=== PATIENT | male | born 1960 | race Caucasian/White ===

== ENCOUNTER 2019-05-08 16:56 | Emergency (ER) | payer OTHER, SELFPAY ==
[2019-05-08] VITALS (30 sets, daily range): BP systolic 79–154; BP diastolic 33–96; PULSE 60–89; RESP 13–44; TEMP 36.5; O2SAT 90–100
[2019-05-08 17:26] LABS: Prothrombin Time 10.3 sec (9.3-11.0)
[2019-05-08] MEDS: Ketamine 500 MG/10 ML VIAL 200 MG IV (17:26)
[2019-05-08] MEDS: Succinylcholine 200 MG/10 ML VIAL 100 MG IVP (17:30)
[2019-05-08 17:31] LABS: Abs Immature Grans 0.83 k/cumm (0.0-0.09); HCT 44.2 % (40.0-50.0); HGB 14.8 g/dL (13.5-17.5); Mean Corp. HGB Concentration 33.5 g/dL (32.0-36.0); Mean Corpuscular Hemoglobin 28.5 pg (27.0-33.0); Mean Platelet Volume 9.4 fL (8.0-11.0); Platelet Count 303 x1000/uL (130-400); RBC Distribution Width 13.6 % (11.8-14.1); White Blood Cell Count 14.18 k/cumm (4.4-10.8)
[2019-05-08] MEDS: PROPOFOL 500 MG/50 ML BTL 8.268 MG IVPB (17:35)
[2019-05-08 17:37] LABS: ALT 122 U/L (16-63); AST 156 U/L (15-37); Albumin 3.3 g/dL (3.4-5.0); Alkaline Phosphatase 65 U/L (46-116); Anion Gap 20.4 mmol/L (3-11); BUN 16 mg/dL (7-18); Bilirubin, Total 0.5 mg/dL (0.2-1.0); CO2 18.6 mmol/L (21.0-32.0); CREATININE 1.34 mg/dL (0.70-1.30); Calcium 8.6 mg/dL (8.5-10.1); Chloride 101 mmol/L (98-107); Estimated GFR 54.56 (mL/min/1.73m2); Glucose 319 mg/dL (74-106); NT-proBNP 3583 pg/mL (<300); Sodium 140 mmol/L (136-145); Total Protein 7.2 g/dL (6.4-8.2)
[2019-05-08 17:44] LABS: Troponin I 0.36 ng/Ml (<0.06)
--- NOTE | 2019-05-08 17:51 | W.ED.GENAD ---
Discharge Plan Disposition Patient Disposition: [facility] Discharge Details Chief Complaint: CodeBlue Clinical Impression: Cardiac arrest Primary Care Provider: [facility],[place] ED Provider: Omar Tello Home Meds and New Rx's Prescriptions: No Action aspirin [Aspir-81] 81 MG tablet,delayed release (DR/EC) 1 tab PO DIRECTED RF: 0 CENTRUM TABLET 1 EACH tablet 1 tab PO DAILY RF: 0 atenolol 50 MG tablet 1 tab PO DAILY Qty: 90 RF: 4 metformin 500 MG tablet 1,000 mg PO BID@0800,1700 RF: 0 Discharge Data Discharge Date/Time-TO BE ENTERED AT DEPARTURE: 05/08/19 19:55 Medical Decision Making 59-year-old male with history of diabetes, obese, here after becoming unresponsive while watching television. Downtime of up to 7 minutes prior to defibrillation and CPR. Patient now with return of spontaneous circulation. Spontaneously breathing on his own. Screening ECG was reviewed and interpreted by me: ST depressions are noted lead I, 2, V3 to V6, [address] elevation in aVR. Concern for posterior STEMI versus inferior lateral ischemia. Labs reviewed and troponin is elevated. Patient was administered ketamine. Supraglottic airway was removed,there was vomit noted in posterior oropharynx and around the cords, vocal cords were visualized, airway was suctioned, succinylcholine was administered and endotracheal tube 7-0 was placed on first attempt with video laryngoscopy. Plan for CT head to assess for hemorrhage. We will also scan CT chest and abdomen pelvis to assess for acute pulmonary embolism or other acute pathology to explain to arrest. 18:00 --I spoke with inspector final assembly electrical at [facility] who will accept the patient for Dr. Manuel. WCardiology recommends giving heparin bolus and drip as well as Plavix, statin and aspirin if CT head is negative. Plan to obtain posterior EKG. ill arrange for [facility] ground medic transportation as no helicopter available. --Patient intermittently hypotensive requiring decrease of propofol and increase of Levophed drip. Patient had heavy bowel movement in bed and needed to be cleaned by nursing as quickly as possible prior to CT. -- Patient biting tube. Vecuronium 10mg given and propofol increased. 19:14 --CT head interpreted by radiology: Normal brain. Chronic sinusitis. Nursing obtaining posterior ECG. Patient was reassessed multiple times. Patient has received 2L NS bolus, currently on low dose norepi 0.5mcg/min. MAP currently 63. Norepi increased to 4mcg/min. -- [facility] ground here. Trying to obtain posterior ECG. 19:29 --CT of the chest interpreted by radiology: Bilateral posterior infiltrative changes which could represent aspiration pneumonia. Mild groundglass interstitial changes bilaterally suggesting early edema. Endotracheal tube in place. No evidence of pulmonary embolism. No evidence of aortic dissection or aneurysm. Cardiomegaly. CT of the abdomen pelvis interpreted by radiology: No evidence of abdominal aortic aneurysm or dissection. Mild distal aortic atherosclerotic change. Renal changes bilaterally suggesting previous pyelonephritis. Right renal cyst. Bilateral multiple nonobstructive renal calculi. Bilateral calculi. Small bladder diverticulum. Degenerative lumbar spine change. HPI General Mode of arrival: EMS. Date/Time Provider Initiated Documentation: 05/08/19 17:04. Limitations to Documentation: altered mental status. Information obtained by: EMS. HPI Narrative: 59-year-old male with history of diabetes presents with altered mental status, post cardiac arrest. History and review of systems limited secondary to altered mentation. Per EMS, patient was sitting watching TV with family and suddenly became unresponsive. EMS arrived to find the [facility] in [facility]. CPR was initiated. Downtime was approximately 7 minutes prior to initiation of CPR. Defibrillation was successful on second attempt. Patient then lost pulse. CPR was restarted. Patient received 3 doses of epinephrine and then regained spontaneous circulation. Patient was intubated with an eye gel supraglottic airway by medics. Lower extremity IO was obtained for access. In route to the hospital, patient started to have spontaneous respirations. Related Data Home Medications Medication Instructions Recorded Confirmed Centrum Tablet 1 tab PO DAILY 08/30/12 04/30/16 aspirin [Aspir 81] 1 tab PO DIRECTED tab-cap 08/30/12 04/30/16 atenolol 1 tab PO DAILY #90 tab-cap 11/29/13 metformin 1,000 mg PO BID@0800,1700 04/30/16 04/30/16 Allergies Allergy/AdvReac Type Severity Reaction Status Date / Time No Known Allergies Allergy Unverified 04/30/16 10:09 General Stated Complaint: CodeBlue SMITHA: 1 Review of Systems Unobtainable due to endotracheal tube [facility] Social History Smoking/Tobacco Use Status: Never Drug use: Never Do you feel safe in your relationship?: Yes Exam Const General: patient mechanically ventilated and other (Unresponsive) Nutritional Appearance: obese HENMT Head: no palpable skull fracture General nose exam: external nose normal Face and sinus: other (Vomit on face) Mouth: other (Supraglottic airway intact on arrival) Teeth and gingiva: poor dentition Eyes Pupils: fixed and pupil size bilaterally 3 Neck Neck: no JVD Resp Other: Patient with spontaneous ventilations Cardio Rate: regular rate Rhythm: regular rhythm Heart Sounds: no murmurs GI Palpation: soft Skin Other: No diaphoresis, no cyanosis Neuro Cognition: abnormal cognition (Unresponsive to painful stimuli) Extrem Right lower extremity: edema Details: non-pitting (Trace bilateral) Course Vital Signs Vital signs: Vital Signs Temperature 36.5 C 05/08/19 17:04 Pulse 80 05/08/19 17:04 Respiratory Rate 24 05/08/19 17:04 Blood Pressure 154/51 H 05/08/19 17:04 Pulse Oximetry 95 05/08/19 17:04 Temperature 36.5 C 05/08/19 17:04 Temperature Source Skin 05/08/19 17:04 Pulse 69 05/08/19 17:47 Respiratory Rate 24 05/08/19 17:04 Blood Pressure 91/57 L 05/08/19 17:47 Blood Pressure Position Supine 05/08/19 17:04 Pulse Oximetry 95 05/08/19 17:04 Lab/Test Results Lab/Test Results: Laboratory Tests Range/Units 05/08/19 05/08/19 05/08/19 17:06 17:06 17:06 WBC (4.4-10.8) k/cumm 14.18 H RBC (4.50-6.00) m/cumm 5.20 Hgb (13.5-17.5) g/dL 14.8 Hct (40.0-50.0) % 44.2 MCV (80-95) fL 85.0 MCH (27.0-33.0) pg 28.5 MCHC (32.0-36.0) g/dL 33.5 RDW (11.8-14.1) % 13.6 Plt Count (130-400) x1000/uL 303 MPV (8.0-11.0) fL 9.4 Sodium (136-145) mmol/L 140 Potassium (3.5-5.1) mmol/L 4.0 Chloride (98-107) mmol/L 101 Carbon Dioxide (21.0-32.0) mmol/L 18.6 L Anion Gap (3-11) mmol/L 20.4 H BUN (7-18) mg/dL 16 Creatinine (0.70-1.30) mg/dL 1.34 H Estimated GFR/1.73 m2 (mL/min/1.73m2) 54.56 Glucose (74-106) mg/dL 319 H Lactate (0.6-1.4) mmol/L 9.0 H* Calcium (8.5-10.1) mg/dL 8.6 Magnesium (1.8-2.4) mg/dL 2.0 Total Bilirubin (0.2-1.0) mg/dL 0.5 AST (15-37) U/L 156 H ALT (16-63) U/L 122 H Alkaline Phosphatase (46-116) U/L 65 Troponin I (<0.06) ng/Ml 0.36 H* NT-Pro-B Natriuret Pep (<300) pg/mL 3583 H Total Protein (6.4-8.2) g/dL 7.2 Albumin (3.4-5.0) g/dL 3.3 L Procedures Intubation Time out performed: Yes sedative: Ketamine Mg Given: 200 paralytic: Succinylcholine Mg Given: 100 Laryngoscope: fiberoptic video scope ET Tube Size: 7 ET Tube Uncuffed: Yes Tube Secured Depth (cm): 23 Tube Secured Location: teeth Tube Placement Confirmation: visualized tube passing through cords, equal breath sounds bilaterally, no breath sounds over epigastrum and confirmation by capnometry Patient Tolerated Procedure: well Intubation Complications: none Critical Care Time Critical Care Time Critical Care Time: Yes Total Critical Care Time: 85 Attestation: I spent greater than 85 minutes addressing this patient's immediate life threats.
[2019-05-08 17:54] LABS: Absolute Lymphocyte Count 5.25 k/cumm (1.2-3.4); Absolute Monocyte Count 0.85 k/cumm (0.11-0.7); Absolute Neutrophil Count 7.09 k/cumm (1.2-6.7); Atypical Lymphocytes % 5
[2019-05-08 17:55] LABS: Diff Comment Manual Differential; RBC Morphology Normal
[2019-05-08] MEDS: Vecuronium 10 MG VIAL IVP (18:10)
[2019-05-08] MEDS: Omnipaque 350 MG/ML 100 ML BTL IJ (19:00)
[2019-05-08] MEDS: Normal Saline Flush 10 ML SYR IVP (19:00)
--- NOTE | 2019-05-08 19:01 | DI.CT_ITS ---
EXAM: CT CHEST PE ABD PELVIS W CLINICAL HISTORY: altered, post cardiac arrest arrest TECHNIQUE: The exam was performed according to the usual protocol. COMPARISON: No exams were available for comparison FINDINGS: CT angiography of the chest, abdomen and pelvis was performed with a bolus infusion of 100 cc of Omn ipaque 350. No thoracic aortic aneurysm or dissection, evaluation somewhat limited due to motion art ifact. No gross pulmonary embolic disease. Cardiac enlargement noted, no evidence of pericardial ef fusion. Endotracheal tube noted in position. Dependent areas of consolidation and/or atelectasis. Bilateral ground-glass opacities, patient reportedly had cardiac arrest and findings may represent sh ock. Aspiration pneumonia not excluded. No pneumothorax or hemothorax. No free intraperitoneal air or free intraperitoneal fluid. Unremarkable appearance of abdominal aort a and major branches. Liver, spleen, and pancreas appear normal. Gallbladder and bile ducts are CT normal. Adrenals are unremarkable bilaterally. There are multiple bilateral nonobstructing renal calculi and right renal cysts are noted. No evidence of hydronephrosis or ureterolithiasis. Urinary bladder ca lculi are noted. Small bilateral fat containing inguinal and umbilical hernias noted. No abdominal wall hematoma. No focal bowel pathology. IMPRESSION: Dependent areas of pulmonary consolidation and/or atelectasis, aspiration pneumonia not excluded. Bilateral ground-glass opacities, consider shock lung. Cardiomegaly Bilateral nephrolithiasis and bladder calculi. No evidence of urinary tract obstruction.
--- NOTE | 2019-05-08 19:01 | DI.CT_ITS ---
EXAM: CT HEAD WO CLINICAL HISTORY: altered, post arrest TECHNIQUE: The exam was performed according to the usual protocol. COMPARISON: No exams were available for comparison FINDINGS: Noncontrast cranial CT was performed. Ventricular system is normal in appearance. No evidence of acu te intracranial hemorrhage mass effect or midline shift. Mastoid air cells appear clear. There is muc operiosteal thickening of maxillary and ethmoid sinuses consistent with chronic sinusitis. Otherwise paranasal sinuses are clear. The orbital and temporal bone structures appear intact. IMPRESSION: No evidence of acute process
--- NOTE | 2019-05-08 19:08 | DI.VRAD_ITS ---
PROCEDURE INFORMATION: Exam: CT Head Without Contrast Exam date and time: 05/08/2019 6:48 PM Age: 59 years old Clinical indication: Other: Altered post cardiac arrest TECHNIQUE: Imaging protocol: Computed tomography of the head without contrast. Radiation optimization: All CT scans at this facility use at least one of these dose optimization techniques: automated exposure control; mA and/or kV adjustment per patient size (includes targeted exams where dose is matched to clinical indication); or iterative reconstruction. COMPARISON: No relevant prior studies available. FINDINGS: Brain: Normal. No hemorrhage. Unremarkable white matter. No mass effect. Ventricles: Normal. No ventriculomegaly. Bones/joints: Unremarkable. No acute fracture. Sinuses: Mucosal thickening in the bilateral ethmoid, bilateral maxillary and right sphenoid sinuses. Retention cyst in the left maxillary sinus. Mastoid air cells: Visualized mastoid air cells are well aerated. Soft tissues: Unremarkable. IMPRESSION: Normal brain. Chronic sinusitis Dictated and Authenticated by: Peyton Faustin MD. Ordering:LAINA Nelson MD
[2019-05-08 19:12] LABS: PTT Activated 22.2 sec (21.0-31.4)
--- NOTE | 2019-05-08 19:21 | DI.VRAD_ITS ---
PROCEDURE INFORMATION: Exam: CT Angiography Chest With Contrast Exam date and time: 05/08/2019 6:54 PM Age: 59 years old Clinical indication: Altered post cardiac arrest TECHNIQUE: Imaging protocol: Computed tomographic angiography of the chest with intravenous contrast. 3D rendering: MIP and/or 3D reconstructed images were created by the technologist. Radiation optimization: All CT scans at this facility use at least one of these dose optimization techniques: automated exposure control; mA and/or kV adjustment per patient size (includes targeted exams where dose is matched to clinical indication); or iterative reconstruction. Contrast material: [id number]; Contrast volume: 100 ml; Contrast route: IV RT AC 18G; COMPARISON: No relevant prior studies available. FINDINGS: Tubes, catheters and devices: Endotracheal tube appears well positioned. Pulmonary arteries: Pulmonary arteries are well opacified. No pulmonary embolism. Aorta: Thoracic aorta is normal in caliber. Lungs: Bilateral posterior lung consolidation. Cannot exclude aspiration. Diffuse mild interstitial ground-glass changes may represent early interstitial edema. Pleural space: Unremarkable. No pneumothorax. No pleural effusion. Heart: Cardiomegaly. Right atrial enlargement. Mild left ventricular dilatation. No pericardial effusion. Lymph nodes: Unremarkable. No enlarged lymph nodes. Bones/joints: Is no displaced rib fractures evident.. No acute fracture. Soft tissues: Unremarkable. IMPRESSION: 1. Bilateral posterior infiltrative changes which could represent aspiration pneumonia. 2. Mild ground-glass interstitial changes bilaterally suggesting early edema. 3. Endotracheal tube in place. 4. No evidence of pulmonary arterial embolism. 5. No evidence of aortic dissection or aneurysm. 6. Cardiomegaly. PROCEDURE INFORMATION: Exam: CT Angiography Abdomen With Contrast Exam date and time: 05/08/2019 6:54 PM Age: 59 years old Clinical indication: Altered post cardiac arrest TECHNIQUE: Imaging protocol: Computed tomographic angiography images of the abdomen with intravenous contrast material. 3D rendering: MIP and/or 3D reconstructed images were created by the technologist. Radiation optimization: All CT scans at this facility use at least one of these dose optimization techniques: automated exposure control; mA and/or kV adjustment per patient size (includes targeted exams where dose is matched to clinical indication); or iterative reconstruction. Contrast material: [id number]; Contrast volume: 100 ml; Contrast route: IV RT AC 18G; COMPARISON: No relevant prior studies available. FINDINGS: Aorta: No aortic aneurysm. No aortic dissection. Atherosclerotic aortic features. These are minor in the distal aorta. Celiac trunk and mesenteric arteries: No occlusion or significant stenosis. Renal arteries: No occlusion or significant stenosis. Liver: Normal. No mass. Gallbladder and bile ducts: Normal. No calcified stones. No ductal dilation. Pancreas: Normal. No ductal dilation. Spleen: Normal. No splenomegaly. Adrenals: Normal. No mass. Kidneys and ureters: Bilateral kidneys with lobular contour which could reflect previous pyelonephritis type insults. Right anterior renal 1.5 cm low-attenuation focus suggesting a cyst. Multiple right renal calculi which are nonobstructive. Largest is in a mid posterior calyx measuring approximately 8 mm. Left kidney with multiple nonobstructive calculi. Largest is in the lower pole measuring approximately 6 mm. Stomach and bowel: Unremarkable. No obstruction. No mucosal thickening. Lymph nodes: Unremarkable. No enlarged lymph nodes. Intraperitoneal space: Unremarkable. No free air. No significant fluid collection. Bladder: Calcifications in the posterior bladder which may represent bladder calculi. One measuring 10 mm. The 2nd measuring approximately 11 mm. No definable bladder mass on this noncontrast study. There is a small diverticulum off of the anterior superior bladder measuring 12 mm. Bones/joints: Degenerative lumbar spine change.. No acute fracture. No dislocation. Soft tissues: Unremarkable. IMPRESSION: 1. No evidence of abdominal aortic aneurysm or dissection. Mild distal aortic atherosclerotic change. 2. Renal changes bilaterally suggesting previous pyelonephritis. Right renal cyst. Bilateral multiple nonobstructive renal calculi. 3. Bladder calculi. Small bladder diverticulum. 4. Degenerative lumbar spine change. Dictated and Authenticated by: Shahriar Berrios MD. Ordering:LAINA Nelson MD
[2019-05-08] MEDS: Aspirin 325 MG TAB PO (19:40)
[2019-05-08] MEDS: Clopidogrel 300 MG TAB 600 MG PO (19:40)
[2019-05-08] MEDS: Atorvastatin 40 MG TAB 80 MG PO (19:42)
== END 2019-05-08 19:55 | disposition short-term general hospital (02) ==
PROVIDERS: Emergency Provider Student in an Organized Health Care Education/Training Program
DX: I46.9 Cardiac arrest, cause unspecified (principal); E11.9 Type 2 diabetes mellitus without complications; Z79.84 Long term (current) use of oral hypoglycemic drugs
CPT/HCPCS: 31500; 71275; 74177; 80053; 82805; 93005; 96361; 96365; 96366; 96367; 96375; 99291; 99292; 70450; 83605; 83735; 83880; 84484; 85025; 85610; 85730; 93010; J3490